=== PATIENT | female | born 2000 | race Caucasian/White ===

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

== ENCOUNTER 2022-04-02 11:20 | Day surgery (SDC) | payer OTHER ==
[2022-04-02] MEDS ORDERED: hydrALAZINE 20 MG/ML VIAL SLOW IVP PRN (13:25)
[2022-04-02 13:47] LABS: Amphetamine Not Detected (NotDetected); Barbiturates Screen Not Detected (NotDetected); Benzodiazepine Screen Not Detected (NotDetected); Cocaine Metabolite Screen Not Detected (NotDetected); Methadone Not Detected (NotDetected); Methamphetamine Not Detected (NotDetected); Opiate Screen Not Detected (NotDetected); Oxycodone Screen Not Detected (NotDetected); Phencyclidine (PCP) Not Detected (NotDetected); THC/Cannabinoid Screen Not Detected (NotDetected); Tricyclic Screen Not Detected (NotDetected)
== END 2022-04-02 14:06 | disposition home or self-care (01) ==
LOC: CSHLD/OP 11:20
PROVIDERS: ATTEND Student in an Organized Health Care Education/Training Program
DX: O99.891 Other specified diseases and conditions complicating pregnancy (principal); R60.9 Edema, unspecified; Z3A.36 36 weeks gestation of pregnancy
CPT/HCPCS: 80306; 87081

== ENCOUNTER 2022-04-19 16:32 | Inpatient (IN) | payer OTHER ==
[2022-04-19 17:04] VITALS: BMI 31.6
[2022-04-19] MEDS ORDERED: hydrALAZINE 20 MG/ML VIAL SLOW IVP PRN ×2 (17:33→20:44)
[2022-04-19 18:54] LABS: Fetal Membranes Rupture No Membranes Rupture (No Rupture)
[2022-04-19] MEDS ORDERED: Ondansetron PF 4 MG/2 ML Vial IVP PRN (20:44)
[2022-04-19] MEDS ORDERED: Promethazine HCl 25 MG/ML VIAL IM PRN (20:44)
[2022-04-19] MEDS ORDERED: Acetaminophen 500 MG TAB PO PRN (20:44)
[2022-04-19 21:18] LABS: Hemoglobin 9.8 g/dL (12.0-15.5); Mean Corpuscular Hemoglobin 28.2 pg (27.0-33.0); Mean Corpuscular Volume 85.3 fl (81.6-98.3); Mean Platelet Volume 9.1 fl (7.4-10.4); Platelet Count 376 10x3/uL (150-450); RBC Distribution Width 14.2 % (11.5-14.5); Red Blood Cell (RBC) Count 3.48 10x6/uL (3.90-5.03); White Blood Cell (WBC) Count 9.6 10x3/uL (3.5-10.5)
[2022-04-19 22:03] LABS: Syphilis Antibody Nonreactive (Nonreactive); Syphilis Antibody Index 0.05 S/CO (<1.00 Non-Reactive)
[2022-04-19 22:04] LABS: HBSAg Index 0.15 S/CO (0-0.99); Hep B Surf Ag Non-Reactive S/CO (NonReactive)
[2022-04-19 22:13] LABS: SARS-CoV-2 NAA Rapid Test Not Detected (NotDetected)
[2022-04-20] MEDS ORDERED: Lidocaine 1% (PF) 30 ML VIAL SC PRN (03:05)
[2022-04-20] MEDS ORDERED: Methylergonovine 0.2 MG/ML VIAL IM PRN (03:05)
[2022-04-20] MEDS ORDERED: Ibuprofen 800 MG TAB PO PRN (03:05)
[2022-04-20] MEDS ORDERED: Diphenoxylate HCl/Atropine Tablet PO PRN ×2 (03:05)
[2022-04-20] MEDS ORDERED: Misoprostol 200 MCG TAB PR PRN (03:05)
[2022-04-20] MEDS ORDERED: Carboprost 250 MCG/ML AMP IM PRN (03:05)
[2022-04-20] MEDS ORDERED: Calcium Carbonate 500 MG ChewTAB PO PRN (03:05)
[2022-04-20] MEDS ORDERED: NS w/ Oxytocin 30 units 500 ML IV SCH (03:15)
[2022-04-20] MEDS ORDERED: Butorphanol Tartrate 1 MG/ML VIAL SLOW IVP PRN (04:18)
[2022-04-20] MEDS ORDERED: Fentanyl 2 mcg/Bup 0.1% Cadd 100 ML ONE (04:42)
[2022-04-20] MEDS ORDERED: ePHEDrine Sulfate 50 MG/10 ML VIAL SLOW IVP PRN (05:26)
[2022-04-20] MEDS ORDERED: Acetaminophen 325 MG TAB PO PRN (05:26)
[2022-04-20] MEDS ORDERED: Moisturizing Cream (Eucerin) 113 GM JAR TOP PRN (05:26)
[2022-04-20] MEDS ORDERED: Ondansetron PF 4 MG/2 ML Vial IVP PRN ×2 (05:26→11:03)
[2022-04-20] MEDS ORDERED: Lactated Ringer's 500 ML IV PRN (05:26)
[2022-04-20] MEDS ORDERED: Promethazine HCl 25 MG/ML VIAL IM PRN ×2 (05:26→11:03)
[2022-04-20] MEDS ORDERED: Naloxone HCl 0.4 mg/ml Vial IVP PRN ×2 (05:26)
[2022-04-20] MEDS ORDERED: diphenhydrAMINE 50 MG/ML VIAL IVP PRN (05:26)
[2022-04-20] MEDS ORDERED: Communication Order-Pharmacy FS SCH (05:30)
[2022-04-20] MEDS ORDERED: Fentanyl 2 mcg/Bupivacaine 0.1% Cassette 100 ML EPIDURAL SCH (05:30)
[2022-04-20] MEDS ORDERED: Bupivacaine 0.25% HCL 30 ML VIAL ONE (08:00)
[2022-04-20] MEDS ORDERED: HYDROcodone/Acetaminophen 5/325 mg Tablet PO PRN (11:03)
[2022-04-20] MEDS ORDERED: Bisacodyl 10 MG SUPP PR PRN (11:03)
[2022-04-20] MEDS ORDERED: Lanolin Ointment 7 GM TUBE TOP PRN (11:03)
[2022-04-20] MEDS ORDERED: diphenhydrAMINE 25 MG CAP PO PRN (11:03)
[2022-04-20] MEDS ORDERED: Preparation H Ointment 28 GM TUBE PR PRN (11:03)
[2022-04-20] MEDS ORDERED: hydrALAZINE 20 MG/ML VIAL SLOW IVP PRN (11:03)
[2022-04-20] MEDS ORDERED: Benzocaine-Menthol 82.5 ML CAN TOP PRN (11:03)
[2022-04-20] MEDS ORDERED: Milk Of Magnesia 30 ML UDCUP PO PRN (11:03)
[2022-04-20] MEDS ORDERED: Boostrix 0.5 ML (Tdap) VIAL (>/=7 yrs of age) IM ONE (11:03)
[2022-04-20] MEDS: Ibuprofen 800 MG TAB PO SCH ×2 (13:59→21:48)
[2022-04-20] MEDS: Ferrous Sulfate 325 MG TAB PO SCH (17:55)
[2022-04-20] MEDS: Docusate 100 MG CAP PO SCH (21:48)
[2022-04-21] MEDS: HYDROcodone/Acetaminophen 5/325 mg Tablet PO PRN ×3 (00:21→14:02)
[2022-04-21 03:43] LABS: Hemoglobin 7.9 g/dL (12.0-15.5)
[2022-04-21] MEDS: Ibuprofen 800 MG TAB PO SCH ×3 (08:13→23:46)
[2022-04-21] MEDS: Prenatal Vitamin 1 TAB PO SCH (08:15)
[2022-04-21] MEDS: Docusate 100 MG CAP PO SCH ×2 (08:15→23:47)
[2022-04-21] MEDS: Ferrous Sulfate 325 MG TAB PO SCH ×2 (08:15→17:42)
[2022-04-22 07:31] VITALS: BP 110/56; TEMP 98.5
[2022-04-22] MEDS: Ibuprofen 800 MG TAB PO SCH (07:37)
[2022-04-22] MEDS: Ferrous Sulfate 325 MG TAB PO SCH (07:38)
[2022-04-22] MEDS: Docusate 100 MG CAP PO SCH (07:38)
[2022-04-22] MEDS: Prenatal Vitamin 1 TAB PO SCH (07:38)
== END 2022-04-22 13:35 | disposition home or self-care (01) | DRG 807 ==
LOC: CSHLD/OP 16:32 → CSHLD 04-20 00:34 → CSHPP 04-20 11:25
PROVIDERS: ADMIT Student in an Organized Health Care Education/Training Program; ATTEND Student in an Organized Health Care Education/Training Program
PROC: 10E0XZZ Delivery of Products of Conception, External Approach (ICD-10-PCS; principal; 2022-04-20)
PROC: 0HQ9XZZ Repair Perineum Skin, External Approach (ICD-10-PCS; 2022-04-20)
DX: O42.02 Full-term premature rupture of membranes, onset of labor within 24 hours of rupture (principal); Z37.0 Single live birth; Z20.822 Contact with and (suspected) exposure to COVID-19; Z3A.38 38 weeks gestation of pregnancy; O70.0 First degree perineal laceration during delivery
CPT/HCPCS: 36415; 51702; 84112; 85014; 85018; 85027; 86780; 86850; 86900; 86901; 87340; 99285; J0595; S0020; U0002